=== PATIENT | female | born 1970 | race Asian ===

== ENCOUNTER 2024-09-26 14:35 | Outpatient (AMB) | payer OTHER, SELFPAY ==
--- OUTSIDE RECORDS SUMMARY | 2024-09-21 23:59 | XMS_ITS | Continuity of Care Document ---
Author Organization [facility] Address [address] [place] [address] [address] [place] [address]- Care Team Providers Care Sales Consultant Name Role Phone Lillian Burgos NP Primary Care Physician Encounter [facility] Date(s): 08/22/24 - 09/21/[address] [place] [address]- Attending Physician: Marlen Altman Admitting Physician: Marlen Altman Referring Physician: AdmtrMarlen Encounter Type: Triage Allergies, Adverse Reactions, Alerts No Known Medication Allergies Problem List Condition Confirmation Course Effective Dates Status H ealth Status Informant Chronic arthritis Confirmed Active History of latent tuberculosis Confirmed Active Mixed hyperlipidemia Confirmed Active Social History Social History Type Response Smoking Status Never smoker entered on: 08/14/17 Sex Sex Representation Female (finding) Patient Care team information Care Team Personnel Name: Lillian Burgos NP Position: S PCO Associate Professional Member Role: PCP Address: [address] [place] [id number] Telecom: Care Team Related Persons Name: MIKE PHILLIPS Name: GREG PHILLIPS Insurance Providers Guarantor name: VERO PHILLIPS Health Plan Information #: 1 Payer: [employer] Payer Identifier: NA Member Number: [id number] Group Number: [id number] Subscriber Identifier: [id number] Relationship to Subscriber: self Coverage Type: Medicaid (Managed Care) Coverage Verification Date: NA Telecom: NA Address: NA
--- NOTE | 2024-09-26 14:33 | A.OFFVIS_ITS ---
Vital Signs 3 09/26/24 14:36 Height 5 ft 3 in Weight 150 lb BMI 26.6 Pulse 98 Pulse Source Pulse Oximeter Pulse Oximetry (%) 98 Oxygen Delivery Method Room Air Intake Visit Reasons: [facility] reff/ latent Allergies No Known Allergies Allergy (Verified 09/26/24 14:40) HPI HPI [facility] reff/ latent: Details: I am seeing this patient as urgent case for Dr Lillian Guardado ,PCP [facility] . We are using [employer] ,dish technician [id number] but daughter also present in room and speaks Uzbek. I saw patient 07/27/2020 for treatmetn latent TB and she completed six months INH and B6. She has neg CXR as she does now. 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 Patients CXR is negative and there is no fever or chills or hemoptysis or swelling elsewhere. [facility] Medical History (Updated 09/26/24 @ 16:56 by Margarette Mars MD) Lymphadenopathy of right cervical region Review of Systems Const All systems reviewed & are unremarkable except as noted in HPI and below Physical Exam Vital Signs: Last Vital Signs Pulse 98 09/26/24 14:36 Pulse Ox 98 09/26/24 14:36 Oxygen Delivery Method Room Air 09/26/24 14:36 BMI result Body Mass Index 26.6 Const Other: General: cooperative Orientation/consciousness: patient oriented x3 HEENT Head: Yes normal to inspection Mouth: Normal oral and palatal mucosa present Eyes General: appearance normal, both eyes and all related structures Pupils: Equal, round and reactive pupils present Resp Effort & Inspection: normal respiratory effort Cardio Rate: regular rate Rhythm: regular rhythm GI Palpation (GI): Soft to palpation and nontender General: Yes no CVA tenderness Back/Spine/Pelvis Back: no CVA tenderness Skin General skin exam: no rashes or lesions noted Neuro General: patient oriented x3 Cranial nerves: Yes CN's II-XII intact bilaterally and Yes Equal, round and reactive pupils present Extrem General: Yes normal to inspection Psych Appearance: grossly normal Assessment & Plan Assessment & Plan (1) Lymphadenopathy of right cervical region: Comment: This still could be TB even resistant as received INH as mono therapy latent TB as recommended However 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 Will discuss with Eh Clement at [facility] when biopsy getting done so right tests are ordered. Will see and treat after results available and did tell this to family. No treatment until then. I also discussed case with Dr Burgos. Coding Level of Care Code Est Pt Level 4 (63824) Diagnoses Lymphadenopathy of right cervical region R59.0
[2024-09-26 14:36] VITALS: PULSE 98; O2SAT 98; BMI 26.6
== END 2024-09-26 15:18 | disposition home or self-care (01) ==
PROVIDERS: Visit Provider Internal Medicine
DX: R59.0 Localized enlarged lymph nodes (principal)
CPT/HCPCS: 99214

== ENCOUNTER → 2024-09-26 14:35 | Outpatient (BNVA) | payer OTHER, SELFPAY | PROVIDERS: Visit Provider Internal Medicine | DX: R59.0 Localized enlarged lymph nodes (principal) | CPT/HCPCS: 99212 ==